=== PATIENT | male | born 1990 | race Hispanic/Latino ===

== ENCOUNTER 2018-08-20 02:28 | Emergency (ER) | payer OTHER ==
[2018-08-20 02:59] VITALS: RESP 16
[2018-08-20] MEDS ORDERED: Lidocaine 1% w Epi 1:100,000 Inj ONE (03:02)
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
[2018-08-20 03:47] VITALS: BP 125/73; PULSE 102; TEMP 98.7; O2SAT 96
== END 2018-08-20 03:52 | disposition home or self-care (01) ==
LOC: H.ER 02:28
DX: S01.81XA Laceration without foreign body of other part of head, initial encounter (principal); W22.8XXA Striking against or struck by other objects, initial encounter; Y92.89 Other specified places as the place of occurrence of the external cause